=== PATIENT | male | born 1955 | race Caucasian/White ===

== ENCOUNTER 2016-07-23 00:07 | Emergency (ER) | payer BC ==
[2016-07-23] MEDS ORDERED: ASPIRIN 325 MG TABLET PO ONE (00:20)
[2016-07-23] MEDS ORDERED: LORAZEPAM 2 MG/ML VIAL IV ONE (00:21)
[2016-07-23] MEDS ORDERED: MORPHINE SULFATE 5 MG/ML PFS IVP ONE (00:21)
[2016-07-23] MEDS ORDERED: NITROGLYCERIN/D5W 50 MG/250 ML ML IV SCH (00:30)
--- NOTE | 2016-07-23 00:31 | Emergency Department Record ---
History of Present Illness - General Chief Complaint: Chest Pain Stated Complaint: CHEST PAIN Time Seen by Provider: 07/23/16 00:20 Source: Patient Mode of Arrival: Ambulatory Limitations: No limitations - History of Present Illness Initial Comments: The patient is here due to a 6-7 hour hx of retrosternal chest discomfort. It is described as an aching pain that is nonradiating with SOB and sweating. The pain come on with exertion. Presently the pain is improved and he is able to lie flat with the pain. He has no hx of similar issues or problems but does have a hx of COPD. MD Complaint: Chest pain Onset/Timin -: Hour(s) Onset: During exertion Pain Location: Substernal Pain Radiation: None Severity: Severe Severity scale (1-10): 8 Quality: Heaviness Consistency: Constant Improves With: Nothing Worsens With: Nothing Treatments Prior to Arrival: None - Related Data Allergies Allergy/AdvReac Type Severity Reaction Status Date / Time No Known Allergies Allergy Unverified 02/10/15 17:12 Travel Screening - Travel/Exposure Within Last 30 Days Have you traveled within the last 30 days?: No Past Medical History - SOCIAL HISTORY Smoking Status: Current every day smoker Alcohol Use: None Drug Use: None - RESPIRATORY Hx Respiratory Disorders: Yes Hx Asthma: Yes - CARDIOVASCULAR Hx Cardio Disorders: No - NEURO Hx Neuro Disorders: No - GI Hx GI Disorders: No - Hx Genitourinary Disorders: No - ENDOCRINE Hx Endocrine Disorders: No - MUSCULOSKELETAL Hx Musculoskeletal Disorders: No - PSYCH Hx Psych Problems: No - HEMATOLOGY/ONCOLOGY Hx Hematology/Oncology Disorders: No Family Medical History Any Significant Family History?: No Physical Exam - General General Appearance: Alert, Cooperative, No acute distress, Mild distress (due to pain.) - Head Head exam: Atraumatic, Normocephalic, Normal inspection - Eye Eye exam: Normal appearance, PERRL - ENT Throat exam: Normal inspection. negative: Tonsillar erythema, Tonsillar exudate - Neck Neck exam: Normal inspection, Full ROM. negative: Tenderness - Respiratory Respiratory exam: Normal lung sounds bilaterally. negative: Respiratory distress - Cardiovascular Cardiovascular Exam: Regular rate, Normal rhythm, Normal heart sounds - GI/Abdominal GI/Abdominal exam: Soft, Normal bowel sounds. negative: Tenderness - Extremities Extremities exam: Normal inspection, Full ROM, Normal capillary refill. negative: Tenderness - Neurological Neurological exam: Alert, Normal gait. negative: Abnormal gait, Motor sensory deficit - Psychiatric Psychiatric exam: Anxious Course Vital Signs 07/23/16 00:11 Pulse Rate 69 Respiratory 28 H Rate Blood Pressure 138/89 Pulse Ox 96 - Reevaluation(s) Reevaluation #1: The patient is doing better at this time. His pain is improved but still present. I am very convinced he is having an Inferior Wall VT so I did discuss the case with [place]. [place] [facility] does agree to [place] him for emergent cath. I also did discuss the case with Dr. Pedraza in the ER and he accepts the patient in an ER to ER transfer. 07/23/16 00:40 07/23/16 02:41 Reevaluation #2: The patient is doing a little better at this time. He states the pain is improving and he is resting comfortably. His BP is 112/70 at this time. 07/23/16 00:48 Reevaluation #3: 2nd EKG 00:19: NSR at 64, ST elevation inferior leads. 07/23/16 02:40 Medical Decision Making - Data Complexity MDM Data: Labs Ordered and/or Reviewed, EKG Ordered and/or Reviewed - Lab Data Result diagrams: 07/23/16 00:30 07/23/16 00:30 - EKG Data -: EKG Interpreted by Me EKG: ST Elevation VT (STEMI) (Inf leads.) Disposition Disposition: Transfer Clinical Impression: Acute VT, inferior wall Disposition: Acute Care Hospital Transfer [place] [facility] For Transfer: STEMI Accepting Physician: Grover Time Discussed w/Accepting Physician: 00:42 Condition: (2) Stable Forms: Patient Portal Access Time of Disposition: 00:42
[2016-07-23] MEDS ORDERED: HEPARIN SODIUM 1000 UNIT/1 ML 10ML VIAL IVP ONE (00:36)
[2016-07-23 00:38] LABS: BASO % 0.4 % (0-6); GRAN % 47.6 % (47-80); HEMATOCRIT 47.9 % (42.0-52.0); HEMOGLOBIN 15.8 gm/dl (14.0-18.0); LYMPH % 41.2 % (16-45); MEAN CELL VOLUME 89.9 fl (81-97); MEAN CORPUSCULAR HEMOGLOBIN 29.6 pg (27-33); MEAN PLATELET VOLUME 9.8 fl (7.4-10.4); MONO % 8.8 % (0-9); PLATELET COUNT 223 K/uL (130-400); RED BLOOD COUNT 5.33 M/uL (4.40-5.70); RED CELL DISTRIBUTION WIDTH 13.5 % (11.5-14.5)
[2016-07-23] MEDS ORDERED: ASPIRIN 81 MG CHEWABLE TABLET PO ONE (00:39)
[2016-07-23] MEDS ORDERED: 0.9 % SODIUM CHLORIDE 1,000 ML BAG IV ONE (00:45)
[2016-07-23 00:49] LABS: ANION GAP 9.2 (7-16); BLOOD UREA NITROGEN 21 mg/dL (9-20); CARBON DIOXIDE 27.8 mmol/L (22-30); CREATINE PHOSPHOKINASE 261 U/L (55-170); CREATININE 0.9 mg/dL (0.66-1.25); EST GLOMERULAR FILTRATION RATE > 60 ml/min; GLUCOSE,RANDOM 178 mg/dL (70-110); INR 0.95; PARTIAL THROMBOPLASTIN TIME 27.2 SECONDS (24.5-39.1); PROTHROMBIN TIME (PATIENT) 10.7 SECONDS (9.5-12.1)
[2016-07-23 01:01] LABS: CKMB 5.2 ug/L (0-6)
[2016-07-23 01:22] LABS: TROPONIN I 0.351 ng/mL (0.00-0.034)
--- NOTE | 2016-07-26 14:58 | RADIOLOGY REPORT ---
EXAM: CHEST AP or PA ONLY HISTORY: ACUTE DIFFICULTY BREATHING. TECHNIQUE: AP chest. COMPARISON: Chest x-ray 02/10/2015. FINDINGS: Lungs are clear. Cardiac silhouette, diaphragm, and osseous structures are unremarkable for age. IMPRESSION: NEGATIVE CHEST. JOB NUMBER: [id number] MTDD
== END 2016-07-23 00:50 | disposition short-term general hospital (02) ==
LOC: ER 00:07
DX: I21.19 ST elevation (STEMI) myocardial infarction involving other coronary artery of inferior wall (principal); R06.02 Shortness of breath; J44.9 Chronic obstructive pulmonary disease, unspecified; F17.210 Nicotine dependence, cigarettes, uncomplicated
CPT/HCPCS: 99285 ×2; 96374; 96375; 82550; 85025; 85730; 85610; 82553; 84484; 80048; 71010; 93005; 93010; J2270; J7030

== ENCOUNTER 2017-08-25 10:42 | Day surgery (SDC) | payer BC ==
[2017-08-25] MEDS ORDERED: PROPOFOL 10 MG/ML VIAL IV ONE (10:43)
[2017-08-25] MEDS ORDERED: LIDOCAINE 2% MDV (20MG/ML) 20ML VIAL IV ONE (10:43)
--- NOTE | 2017-08-26 12:30 | Operative Note ---
DATE OF SURGERY: 08/25/2017 OPERATION: COLONOSCOPY to the cecum with a cold snare polypectomy x3, electrocautery snare polypectomy x1, and multiple cold biopsy forceps polypectomies. INDICATION: Colorectal cancer screening. This is this gentleman's first colonoscopy. ANESTHESIA: Intravenous sedation was administered by the department of anesthesiology and included Diprivan titrated to effect. PROCEDURE: Following informed consent from this alert individual including a discussion of the risks and benefits of the procedure and an opportunity for the patient to ask questions, the patient was in the left lateral decubitus position. A digital rectal examination was performed. No abnormalities were noted. Following this, the Olympus [id number] video colonoscope was inserted into the rectum without resistance. In the mid rectum, there was a large polyp measuring approximately 12 mm in size which was initially traversed. The colonoscope was advanced up through the bowel to the level of the cecum without much difficulty. The colon preparation was adequate. A few scattered diverticula were seen in the sigmoid region. The cecum was well defined by noting the appendiceal orifice and ileocecal valve. The ileocecal valve was cannulated briefly and appeared to be unremarkable. Retroflexion in the cecum was endoscopically normal. From the base of the cecum, the colonoscope was then withdrawn. There was a 6 mm ascending colon polyp removed with cold snare polypectomy. There was a 3 mm splenic flexure polyp removed with biopsy forceps. Descending colon polyp and sigmoid colon polyp each measuring approximately 5 mm in size removed with cold snare polypectomy. There was a large mid rectal polyp measuring 12-15 mm in size which was removed with electrocautery snare polypectomy. A white eschar was noted. There was no bleeding. It was semi-pedunculated. There were multiple distal rectal polyps and multiple biopsies were obtained. Retroflexion in the rectum was otherwise endoscopically unremarkable. The instrument was removed. The patient tolerated the procedure well and was returned to the recovery area in stable condition. IMPRESSION: 1. Multiple colon polyps as described above with the largest measuring 12-15 mm in the mid rectum removed with electrocautery snare. Smaller polyps in the ascending colon, descending colon, and sigmoid colon removed with cold snare polypectomy. A 3 mm polyp in the splenic flexure as well as multiple distal rectal polyps which were diminutive in size removed with cold biopsy forceps. 2. Sigmoid diverticulosis - mild. RECOMMENDATIONS: Further recommendations will be forthcoming pending results of pathology obtained today. Followup will also be with Vu Whalen DO. Post-polypectomy instructions were given to the patient in oral and written form. As always, thank you for allowing me to participate in the care of your patient. CC: Luisito MATIAS
== END 2017-08-25 13:05 | disposition home or self-care (01) ==
LOC: HOP 10:42
PROVIDERS: ATTEND Internal Medicine Gastroenterology
DX: Z12.11 Encounter for screening for malignant neoplasm of colon (principal); D12.2 Benign neoplasm of ascending colon; D12.4 Benign neoplasm of descending colon; D12.5 Benign neoplasm of sigmoid colon; K62.1 Rectal polyp; D12.6 Benign neoplasm of colon, unspecified; E78.00 Pure hypercholesterolemia, unspecified; I10 Essential (primary) hypertension; K57.30 Diverticulosis of large intestine without perforation or abscess without bleeding